=== PATIENT | female | born 1980 | race Hispanic/Latino ===

== ENCOUNTER 2018-02-15 17:43 | Emergency (ER) | payer OTHER ==
[2018-02-15 18:40] VITALS: BP 122/70; PULSE 76; RESP 18; TEMP 98; O2SAT 99
--- NOTE | 2018-02-15 19:02 | ED PDOC ---
Upper Extremity Pain/Injury Time Seen by Provider: 02/15/18 17:54 Chief Complaint (Nursing): Finger,Hand,&Wrist Chief Complaint (Provider): Finger pain History Per: Patient History/Exam Limitations: no limitations Onset/Duration Of Symptoms: Hrs Current Symptoms Are (Timing): Still Present Additional Complaint(s): 37 year old female presents to the emergency department with a complaint of a left 3rd digit pain after dropping frozen food on the tip of her finger this morning. Associated with bruising. Patient is concerned and came for an evaluation. Patient is currently 25 weeks . Denies decrease in range of motion or any other injuries. Past Medical History Reviewed: Historical Data, Nursing Documentation, Vital Signs Vital Signs: Last Vital Signs Temp 98 F 02/15/18 18:39 Pulse 76 02/15/18 18:39 Resp 18 02/15/18 18:39 BP 122/70 02/15/18 18:39 Pulse Ox 99 02/15/18 18:39 - Medical History PMH: No Chronic Diseases - Surgical History Surgical History: No Surg Hx - Family History Family History: States: No Known Family Hx - Social History Current smoker - smoking cessation education provided: No Alcohol: None Drugs: Denies - Allergies Allergies/Adverse Reactions: Allergies Allergy/AdvReac Type Severity Reaction Status Date / Time No Known Allergies Allergy Verified 02/15/18 17:45 Review of Systems ROS Statement: Except As Marked, All Systems Reviewed And Found Negative (As per HPI, otherwise negative) Constitutional: Negative for: Other (decrease ROM, or any other injury) Musculoskeletal: Positive for: Other (Left 3rd digit bruising. ) Physical Exam - Reviewed Nursing Documentation Reviewed: Yes Vital Signs Reviewed: Yes - Physical Exam Comments: GENERAL APPEARANCE: Patient is awake, alert, oriented x 3, in no acute distress. SKIN: Warm, dry; (-) cyanosis. HAND: (+) Ecchymosis and mild tenderness to the distal volar aspect of the left 3rd digit as well as bruising to the proximal aspect of the nail. Full range of motion. Normal sensation. Capillary refill is less than 2 seconds, intact. Elbow, wrist, and rest of the digits: (-) Tenderness, (-) swelling, (-) ecchymosis, (-) deformity, (-) distal neurovascular deficit. NEURO AND PSYCH: Mental status as above. - ECG O2 Sat by Pulse Oximetry: 99 (RA) Pulse Ox Interpretation: Normal Medical Decision Making Medical Decision Making: Time: 1753 Initial impression: Finger pain Initial plan: --Evaluation --x-ray is not advised for patient because she is which she agrees with. --Finger splint applied and advised to rest, ice, and elevate finger. Time: 1829 Patient is medically clear for discharge and advised to only take Tylenol for pain. Advised to follow up with primary care physician in 1-2 days without fail. Return to the emergency room at any time for any new or worsening symptoms. Patient states she fully agrees with and understands discharge instructions. States that she agrees with the plan and disposition. Verbalized and repeated discharge instructions and plan. I have given the patient opportunity to ask any additional questions. Clinical Impression: Finger contusion Scribe Attestation: Documented by Darlene Tang, acting as a scribe for Elaina Elias PA-C. Provider Scribe Attestation: All medical record entries made by the Scribe were at my direction and personally dictated by me. I have reviewed the chart and agree that the record accurately reflects my personal performance of the history, physical exam, medical decision making, and the department course for this patient. I have also personally directed, reviewed, and agree with the discharge instructions and disposition. Disposition - Clinical Impression Clinical Impression: Finger contusion - Patient ED Disposition Is Patient to be Admitted: No Counseled Patient/Family Regarding: Diagnosis, Need For Followup, Rx Given - Disposition Disposition: Routine/Home Disposition Time: 18:30 Condition: STABLE Additional Instructions: Thank you for letting us take care of you today. You were treated for finger contusion. Rest, ice and elevate. Wear splint for comfort. The emergency medical care you received today was directed at your acute symptoms. Take tylenol only for pain. It may take several days for your symptoms to resolve. Return to the Emergency Department if your symptoms worsen, do not improve, or if you have any other problems. Please contact your doctor in 2 days for re-evaluation and follow up. Bring any paperwork you were given at discharge with you along with any medications you are taking to your follow up visit. Our treatment cannot replace ongoing medical care by a primary care provider (PCP) outside of the emergency department. Thank you for allowing the [facility] team to be part of your care today. Instructions: Contusion (DC) Forms: [employer] (Iranian) - PA / PUBLIC SAFETY TEACHER / Resident Statement MD/DO has reviewed & agrees with the documentation as recorded.
== END 2018-02-15 19:35 | disposition home or self-care (01) ==
LOC: H.ER 17:43
DX: S60.032A Contusion of left middle finger without damage to nail, initial encounter (principal); W22.8XXA Striking against or struck by other objects, initial encounter; Y92.89 Other specified places as the place of occurrence of the external cause